=== PATIENT | female | born 1950 | race Caucasian/White ===

== ENCOUNTER → 2023-08-17 10:52 | Outpatient (REF) | payer MEDICARE, SELFPAY ==
[2023-08-17 11:28] LABS: % Basophils 0.6 % (0-2); % Immature Granulocytes 1.3 % (0-0.5); % Lymphocytes 19.2 % (20.5-51.1); % Monocytes 10.8 % (1.7-9.3); % Neutrophils 67.1 % (42.2-75.2); Absolute Basophils 0.1 10^3/uL (0-0.2); Absolute Eosinophils 0.1 10^3/uL (0-0.7); Absolute Immature Granulocytes 0.1 10^3/uL (0-0.05); Absolute Lymphocytes 2.1 10^3/uL (1.2-3.4); Absolute Monocytes 1.2 10^3/uL (0.1-0.6); Absolute Neutrophils 7.3 10^3/uL (1.4-6.5); Hematocrit 32.6 % (37.0-47.0); Hemoglobin 11.2 g/dL (12.0-16.0); Mean Corp Hgb Conc. 34.4 g/dL (33.0-37.0); Mean Corpuscular Hgb 30.7 pg (27.0-31.0); Mean Corpuscular Volume 89.3 fL (81.0-99.0); Mean Platelet Volume 10.7 fL (7.4-10.4); Nucleated Red Blood Cells % 0.2 %; Platelet Count 269 10^3/uL (130-400); Red Blood Cell Count 3.65 10^6/uL (4.20-5.40); Red Cell Dist. Width 12.9 % (11.5-14.5); White Blood Cell Count 10.8 10^3/uL (4.8-10.8)
== END ==
LOC: OLABN 10:52
PROVIDERS: ATTENDING PHYSICIAN Student in an Organized Health Care Education/Training Program
DX: J44.9 Chronic obstructive pulmonary disease, unspecified (principal)
CPT/HCPCS: 36415; 85025

== ENCOUNTER → 2023-09-19 10:31 | Outpatient (REF) | payer MEDICARE, SELFPAY ==
[2023-09-19 13:17] LABS: Blood Urea Nitrogen 24 mg/dl (7-17); Calcium 9.2 mg/dl (8.4-10.2); Carbon Dioxide 29 mmol/L (22-30); Chloride 81 mmol/L (98-107); Glucose 91 mg/dl (70-99); Potassium 3.1 mmol/L (3.5-5.1); Sodium 121 mmol/L (135-145); eGFR > 60.00
== END ==
LOC: OLABN 10:31
PROVIDERS: ATTENDING PHYSICIAN Student in an Organized Health Care Education/Training Program
DX: I71.43 Infrarenal abdominal aortic aneurysm, without rupture (principal)
CPT/HCPCS: 36415; 80048

== ENCOUNTER → 2023-09-21 10:19 | Outpatient (REF) | payer MEDICARE, SELFPAY ==
[2023-09-21 10:58] LABS: Blood Urea Nitrogen 23 mg/dl (7-17); Calcium 9.1 mg/dl (8.4-10.2); Carbon Dioxide 28 mmol/L (22-30); Chloride 90 mmol/L (98-107); Glucose 96 mg/dl (70-99); Potassium 4.3 mmol/L (3.5-5.1); Sodium 123 mmol/L (135-145); eGFR > 60.00
== END ==
LOC: OLABN 10:19
PROVIDERS: ATTENDING PHYSICIAN Student in an Organized Health Care Education/Training Program
DX: I71.43 Infrarenal abdominal aortic aneurysm, without rupture (principal)
CPT/HCPCS: 36415; 80048

== ENCOUNTER → 2023-09-23 09:26 | Outpatient (REF) | payer MEDICARE, SELFPAY ==
[2023-09-23 10:47] LABS: Blood Urea Nitrogen 21 mg/dl (7-17); Calcium 9.2 mg/dl (8.4-10.2); Carbon Dioxide 30 mmol/L (22-30); Chloride 96 mmol/L (98-107); Glucose 93 mg/dl (70-99); Potassium 4.5 mmol/L (3.5-5.1); Sodium 129 mmol/L (135-145); eGFR > 60.00
== END ==
LOC: OLABN 09:26
PROVIDERS: ATTENDING PHYSICIAN Student in an Organized Health Care Education/Training Program
DX: I71.43 Infrarenal abdominal aortic aneurysm, without rupture (principal)
CPT/HCPCS: 36415; 80048; 82565

== ENCOUNTER → 2023-09-26 09:10 | Outpatient (REF) | payer MEDICARE, SELFPAY ==
[2023-09-26 10:45] LABS: Blood Urea Nitrogen 24 mg/dl (7-17); Calcium 9.4 mg/dl (8.4-10.2); Carbon Dioxide 27 mmol/L (22-30); Chloride 96 mmol/L (98-107); Glucose 92 mg/dl (70-99); Sodium 131 mmol/L (135-145); eGFR > 60.00
== END ==
LOC: OLABN 09:10
PROVIDERS: ATTENDING PHYSICIAN Student in an Organized Health Care Education/Training Program
DX: I71.43 Infrarenal abdominal aortic aneurysm, without rupture (principal)
CPT/HCPCS: 36415; 80048

== ENCOUNTER → 2023-09-27 10:16 | Outpatient (REF) | payer MEDICARE, SELFPAY | LOC: HWRAD 10:16 | PROVIDERS: ATTENDING PHYSICIAN Surgery Vascular Surgery; FAMILY PHYSICIAN Student in an Organized Health Care Education/Training Program | DX: I71.40 Abdominal aortic aneurysm, without rupture, unspecified (principal) | CPT/HCPCS: 74174; Q9967 ==

== ENCOUNTER → 2023-11-02 08:50 | Outpatient (REF) | payer MEDICARE, SELFPAY | LOC: MRI 08:50 | PROVIDERS: ATTENDING PHYSICIAN Pain Medicine Interventional Pain Medicine | DX: M54.16 Radiculopathy, lumbar region (principal); M54.14 Radiculopathy, thoracic region | CPT/HCPCS: 72146; 72148 ==

== ENCOUNTER → 2023-12-14 13:53 | Outpatient (REF) | payer MEDICARE, SELFPAY ==
[2023-12-14 15:47] LABS: Blood Urea Nitrogen 22 mg/dl (7-17); Calcium 9.1 mg/dl (8.4-10.2); Carbon Dioxide 29 mmol/L (22-30); Chloride 99 mmol/L (98-107); Glucose 88 mg/dl (70-99); Potassium 3.8 mmol/L (3.5-5.1); Sodium 136 mmol/L (135-145); eGFR > 60.00
== END ==
LOC: OLABN 13:53
PROVIDERS: ATTENDING PHYSICIAN Student in an Organized Health Care Education/Training Program
DX: I71.40 Abdominal aortic aneurysm, without rupture, unspecified (principal)
CPT/HCPCS: 36415; 80048

== ENCOUNTER → 2023-12-30 10:56 | Outpatient (REF) | payer MEDICARE, SELFPAY | LOC: RAD 10:56 | PROVIDERS: ATTENDING PHYSICIAN Surgery Vascular Surgery; FAMILY PHYSICIAN Student in an Organized Health Care Education/Training Program | DX: I71.40 Abdominal aortic aneurysm, without rupture, unspecified (principal) | CPT/HCPCS: 74174; Q9967 ==

== ENCOUNTER 2024-01-30 14:21 | Inpatient (IN) | payer OTHER, SELFPAY ==
[2024-01-30] VITALS (8 sets, daily range): BP systolic 146–178; BP diastolic 73–100; BMI 24.6; BMI 23.5
[2024-01-30 10:39] LABS: % Basophils 0.3 % (0-2); % Eosinophils 0.2 % (0-6); % Immature Granulocytes 0.5 % (0-0.5); % Lymphocytes 8.2 % (20.5-51.1); % Monocytes 8.1 % (1.7-9.3); % Neutrophils 82.7 % (42.2-75.2); Absolute Basophils 0.1 10^3/uL (0-0.2); Absolute Immature Granulocytes 0.1 10^3/uL (0-0.05); Absolute Lymphocytes 1.7 10^3/uL (1.2-3.4); Absolute Monocytes 1.7 10^3/uL (0.1-0.6); Hematocrit 34.8 % (37.0-47.0); Hemoglobin 11.5 g/dL (12.0-16.0); Mean Corpuscular Hgb 32.9 pg (27.0-31.0); Mean Corpuscular Volume 99.4 fL (81.0-99.0); Mean Platelet Volume 10.4 fL (7.4-10.4); Nucleated Red Blood Cells % 0 %; Platelet Count 192 10^3/uL (130-400); Red Cell Dist. Width 14.3 % (11.5-14.5); White Blood Cell Count 20.6 10^3/uL (4.8-10.8)
[2024-01-30 10:58] LABS: COVID-19 Antigen Negative (Negative)
[2024-01-30 11:09] LABS: ALT (SGPT) 15 U/L (0-35); AST (SGOT) 26 U/L (14-36); Albumin 4.3 g/dl (3.5-5.0); Alkaline Phosphatase 97 U/L (38-126); Blood Urea Nitrogen 24 mg/dl (7-17); Calcium 9.6 mg/dl (8.4-10.2); Carbon Dioxide 30 mmol/L (22-30); Chloride 101 mmol/L (98-107); Estimated Creatinine Clearance 46 ml/min; Glucose 138 mg/dl (70-99); Potassium 4.1 mmol/L (3.5-5.1); Sodium 138 mmol/L (135-145); Total Bilirubin 0.6 mg/dl (0.2-1.3); Total Protein 6.8 g/dl (6.3-8.2); Troponin I 0.028 ng/ml; eGFR > 60.00
[2024-01-30] MEDS: DECADRON 10 MG IV (11:34)
[2024-01-30] MEDS: ZITHROMAX INFUSION 250 IV (11:34)
[2024-01-30] MEDS: DUONEB 3 ML INH (11:34)
--- NOTE | 2024-01-30 11:57 | ED.GENMED ---
History of Present Illness
General
Chief Complaint: Breathing Problem
Source: patient
Exam Limitations: none
Time Seen by Provider: 01/30/24 10:32
Nursing documentation reviewed up to this point in time: agreed with
History of Present Illness
History of Present Illness:
74-year-old female with past medical history of dementia, COPD hypertension hyperlipidemia presenting to the emergency department with worsening shortness of breath over the past 24 hours. Has noted some increasing wheezing and low-grade
temperature at her nursing facility. Denies any specific chest pain or additional upper respiratory symptoms.
Past History
Past History
ED Past Medical History: CAD, COPD, HTN and Hypercholesterolemia
Social History
Personal:
Review of Systems
Review of Systems
Allergies reviewed?: Yes
All Other Systems: ROS reviewed and negative except as documented in HPI and ROS
Phy Exam
Physical Exam
Physical Exam:
GENERAL: Alert , in no apparent distress
EYE: pupils equal and reactive
NECK: Supple, no significant adenopathy.
ENT: o/p clr, mmm.
CARDIAC: Regular rate and rhythm .
LUNGS: Diffuse inspiratory expiratory wheezing
ABDOMEN: Soft, without focal tenderness, no r/g, no cvat
NEUROLOGICAL: Alert and oriented, no focal neuro deficits
SKIN: Warm and dry, skin intact.
MUSCULOSKELETAL: No edema, well perfused.
PSYCH: Normal and appropriate interaction.
Scores
Heart Failure Risk
Heart Failure Risk Score: Not Applicable
Course
Orders/Labs/Results
Orders:
Orders
01/30/24 10:20
Electrocardiogram (*1) Urgent
Reason for Study: Chest Pain
EKG- Treatment ONCE
CXR Port [CR Chest Portable - 1 View] Urgent
Comment:
Reason For Exam: SOB
Reason Study Needs to be Portable: Patient Unstable
01/30/24 10:31
CMP [Comprehensive Metabolic Panel] Urgent
Complete Blood Count/With Diff Urgent
Troponin I Urgent
01/30/24 10:32
COVID-19 Antigen Urgent
Source: Nasal Swab
Influenza A+B Rapid Molecular Urgent
JESSICA Source: Nasal Swab
Specimen Description:
01/30/24 11:07
Azithromycin 500 mg/250 ml [Zithromax Infusion] 500 mg in 250 ml IV NOW
Dexamethasone Sod Phosphate [Decadron] 10 mg IV NOW STA
Ipratropium/Albuterol Sulfate [Duoneb] 3 ml INH R NOW ONE
01/30/24 11:47
Add On- LAB Urgent
Tests Added?: BNP
Abnormal Lab Results
01/30/24
10:31
WBC 20.6 H 10^3/uL
(4.8-10.8)
RBC 3.50 L 10^6/uL
(4.20-5.40)
Hgb 11.5 L g/dL
(12.0-16.0)
Hct 34.8 L %
(37.0-47.0)
MCV 99.4 H fL
(81.0-99.0)
MCH 32.9 H pg
(27.0-31.0)
Abs Immat Gran (auto) 0.1 H 10^3/uL
(0-0.05)
Absolute Neuts (auto) 17.0 H 10^3/uL
(1.4-6.5)
Absolute Monos (auto) 1.7 H 10^3/uL
(0.1-0.6)
Neutrophils % 82.7 H %
(42.2-75.2)
Lymphocytes % 8.2 L %
(20.5-51.1)
BUN 24 H mg/dl
(7-17)
Glucose 138 H mg/dl
(70-99)
07/29/24 10:31
01/30/24 10:31
Vital Signs
Initial and Last Documented VS:
Initial Vital Signs
Temp Pulse Resp Pulse Ox
100.9 F H 118 26 85
01/30/24 10:18 01/30/24 10:18 01/30/24 10:18 01/30/24 10:18
Last Documented Vital Signs
Temp Pulse Resp BP Pulse Ox
100.9 F H 113 24 173/98 94
01/30/24 10:18 01/30/24 10:22 01/30/24 10:22 01/30/24 10:21 01/30/24 10:30
MDM/Problems Addressed
MDM/Problems Addressed:
73-year-old female presenting to the emergency department today with concerns shortness of breath starting yesterday. Low-grade temperature upon arrival tachycardic. Has diffuse inspiratory expiratory wheeze send consistent with potential COPD
exacerbation. Also low-grade temperature potentially consistent with viral syndrome or potential pneumonia. Was started on azithromycin she does complain of coughing up changing phlegm. Given a steroid for likely COPD exacerbation. Initially
white count 20.6 with left shift troponin negative EKG without acute findings chest x-ray showing some potential edema. Plan to admit for further treatment and monitoring.
*Critical Care Note
Total Time (30-74mins, 75-104mins- exclusive of procedures): Not Applicable
ED Attending Note
-
Portions of this chart may have been created with voice recognition software.� Occasional wrong word or��sound alike� substitutions may have occurred due to the inherent limitations of voice recognition software.
Discharge Plan
Departure
Patient Disposition: Admit
Date of Disposition: 01/30/24
Time of Disposition: 12:00
Admit to: Telemetry
Admit to doctor: Hayley
Presentation/result/management discussed w/ accepting MD/DO: Hospitalist
Patient with high blood pressure during this ER visit?: No
Condition: Good
Covid-19: Not Applicable
Discharge Problem:
Hypoxemia, COPD exacerbation, Fever
Prescriptions:
No Action
atorvastatin 40 mg Tablet
40 mg PO HS
primidone 50 mg Tablet
50 mg PO HS
clopidogrel 75 mg Tablet
75 mg PO DAILY
amlodipine 5 mg Tablet
10 mg PO DAILY
levothyroxine 50 mcg Capsule
50 mcg PO DAILY
albuterol sulfate 2.5 mg /3 mL (0.083 %) Solution For Nebulization
2.5 mg inhalation R Q4HPRN PRN (Reason: SOB) Qty: 180 0RF
magnesium hydroxide [Milk of Magnesia] 400 mg/5 mL Suspension
30 ml PO HSPRN PRN (Reason: constipation)
bisacodyl 10 mg Suppository
10 mg TN [id number] PRN (Reason: when no BM and MOM/Lactulose ineffective)
Incruse Ellipta 62.5 mcg/actuation Blister With Device
1 inh INHALATION R DAILY
acetaminophen [Tylenol] 325 mg Tablet
650 mg PO Q4HPRN PRN (Reason: mild pain/fever)
aspirin 81 mg Tablet,Delayed Release (Dr/Ec)
81 mg PO DAILY
lidocaine 4 % Adhesive Patch,Medicated
1 patch TOPICAL DAILY
pantoprazole [Protonix] 20 mg Tablet,Delayed Release (Dr/Ec)
20 mg PO DAILY
oxycodone-acetaminophen [Percocet] 5-325 mg Tablet
1 tab PO Q6HPRN PRN (Reason: severe pain)
alprazolam [Xanax] 0.25 mg Tablet
0.25 mg PO DAILYPRN PRN (Reason: anxiety)
dexamethasone 2 mg Tablet
2 mg PO DAILY
paroxetine HCl [Paxil] 30 mg Tablet
30 mg PO QPM
fluticasone propion-salmeterol [Advair Diskus] 500-50 mcg/dose Blister With Device
1 inh INHALATION R BID
gabapentin 300 mg Capsule
300 mg PO TID
cholecalciferol (vitamin D3) 1,250 mcg (50,000 unit) Tablet
1,250 mcg PO QMONTH
Rx Instructions:
every Tuesday of the month
baclofen 5 mg Tablet
5 mg PO HS
Gemtesa 75 mg Tablet
75 mg PO QPM
Referrals:
Jose Guadalupe Garcia DO [Family Provider] -
Interventions
Interventions:
*Risk Screen - Suicide Last Done: 01/30/24 10:18
*General Assessment Last Done: 01/30/24 10:18
*Neglect/Abuse Screening Last Done: 01/30/24 10:18
ED- Fall Risk Assessment Last Done: 01/30/24 10:18
*ED COVID-19 Vaccine History Last Done: 01/30/24 10:18
ED- Cardiac Assessment Last Done: 01/30/24 10:18
ED- Pulmonary Assessment Last Done: 01/30/24 10:18
Discharge Date and Time
Print Language: URDU
[2024-01-30 12:42] LABS: NT-proBNP 785 pg/ml
[2024-01-30 15:34] LABS: Lactic Acid 0.8 mmol/L (0.7-2.0)
[2024-01-30] MEDS: TYLENOL 650 MG PO (16:13)
[2024-01-30] MEDS: DECADRON 4 MG IV ×2 (16:14→22:11)
--- NOTE | 2024-01-30 16:20 | CM ---
Patient seen at bedside in ED with physicians. Patient stated that she lives at [facility] and that she does want to go home. Patient is a LTC patient per admissions at [facility]. Patient would need an auth from [employer]. Patient currently on O2. CM will call to
SNF to confirm O2 status at facility. Patient nursing unit at [facility] is [phone]/fax [phone]. CM will continue to follow for discharge planning needs.
Plan; return to SNF; with auth needed.
--- NOTE | 2024-01-30 16:36 | PTCARENOTE ---
pt from ED via stretcher. pt is AAO*3, BP in 170's/100's. c/o headache 02/10. Tylenol given to the pt as pr request. pt is oriented to the room. call slaas within the reach. plan of care ongoing.
[2024-01-30 17:10] LABS: Urine Albumin 2+ (Neg - Trace); Urine Bilirubin Negative (Negative); Urine Character Clear (Clear); Urine Color Yellow; Urine Glucose Negative (Negative); Urine Ketone 1+ (Negative); Urine Leukocyte Negative (Negative); Urine Nitrite Negative (Negative); Urine Occult Blood 3+ (Negative); Urine Urobilinogen Negative (Neg - 1+)
[2024-01-30] MEDS: NEURONTIN 300 MG PO ×2 (17:12→22:10)
[2024-01-30 17:32] LABS: Urine Bacteria Few (Negative); Urine Red Blood Cell 21-25 /HPF (0-2); Urine White Cell 0-2 /HPF (0-5)
[2024-01-30] MEDS: PAXIL 30 MG PO (17:50)
[2024-01-30] MEDS: APRESOLINE 5 MG IV (17:55)
--- NOTE | 2024-01-30 18:16 | HPS.HSE ---
Addendum entered and electronically signed by Alena Hardy MD 01/30/24 19:23:
I personally performed a history and physical exam of the patient and discussed management with the resident. I reviewed the resident's note and agree with the documented findings and plan of care HPI/CC.
GENERAL: well developed, well nourished, female in no apparent distress
HEENT: NC/AT--O2 NC in place
HEART: regular rate and rhythm, +S1, +S2
LUNGS : tight wheezing with poor air movement throughout
ABDOM: soft, nontender, nondistended, + bowel sounds
EXT: no cyanosis, clubbing, or edema
NEUROLOGIC: grossly intact
: purewick in place
Sepsis (POA meets criteria) likely due possible bronchitis vs pna--CXR showed mild interstitial pulmonary edema. No effusion--nebs, levaquin---B/C, U/C, U/A, sputum cultures pending--Covid and Flu negative
acute COPD exacerbation with hypoxemic resp insufficiency--due to bronchitis vs pna--nebs, IV steroids, levaquin
Essential HTN--hydralazine 5mg IV q6h if SBP>160-continue amlodipine
Hypercholesterolemia-continue atorvastatin
Anxiety- continue alprazolam
Code status -Full code
DVT prophylaxis - lovenox
PT/OT
Original Note:
Family Physician
-
Family Physician: Jose Guadalupe Garcia DO
Chief Complaint
-
SOB, Cough
History of Present Illness
73 y F with a known history of COPD presented to the ED with shortness of breath and productive cough starting yesterday. Patient notes fever and chest pain. no chills, urinary symptoms, abdominal pain, headache, weakness, muscle pain. Patient was
SIRS positive in ED.
Medical History
Past Medical History
Past Medical History: Reports COPD and Other (HTN, Hypothyroidism, anxiety, osteoarthritis, depression, degenerative disk disease, CAD, neuropathy, constipation, chronic pain)
Past Surgical History: Reports Cardiac (stents)
Social History
Tobacco: Smoker (20 pack year)
Alcohol: None
Drug: None
Living: Jail
Family History
Family History: Not pertinent
Allergies / Home Medications
Allergies reflects when Allergies were last updated in [facility].
Home Medications with original date entered in [facility]
Allergy/Medication List:
Allergies
Allergy/AdvReac Type Severity Reaction Status Date / Time
cefaclor [From [facility]] Allergy Unknown Verified 02/09/23 07:35
Home Medications
amlodipine 5 mg tablet 5 mg PO DAILY Blood Pressure 01/08/23
atorvastatin 40 mg tablet 40 mg PO HS High Cholesterol 01/08/23
clopidogrel 75 mg tablet 75 mg PO DAILY Blood Clot Prevention/Tx 01/08/23
levothyroxine 50 mcg capsule 50 mcg PO DAILY Thyroid 01/08/23
metoprolol tartrate 25 mg tablet 25 mg PO BID Blood Pressure 01/08/23
mirabegron 25 mg tablet,extended release 24 hr (Myrbetriq) 25 mg PO HS Urinary Issue 01/08/23
pantoprazole 40 mg tablet,delayed release 40 mg PO DAILY Gastrointestinal Issue 01/08/23
paroxetine HCl 40 mg tablet 40 mg PO HS Depression 01/08/23
primidone 50 mg tablet 50 mg PO HS Seizures 01/08/23
albuterol sulfate 2.5 mg/3 mL (0.083 %) solution for nebulization 2.5 mg (3 mL) inhalation R Q4HPRN PRN SOB #180 mL 01/12/23
acetaminophen 325 mg tablet (Tylenol) 650 mg PO Q4H PRN mild pain/fever 02/09/23
aspirin 81 mg tablet,delayed release 81 mg PO DAILY 02/09/23
benzocaine 10 % mucosal gel 1 applic mucous membrane QID PRN gum pain 02/09/23
bisacodyl 10 mg rectal suppository 10 mg NE Q72H PRN when no BM and MOM/Lactulose ineffective 02/09/23
diclofenac sodium 1 % topical gel 2 g topical Q8H L rib pain 02/09/23
ergocalciferol (vitamin D2) 1,250 mcg (50,000 unit) capsule 1,250 mcg PO QMONTH 02/09/23
fluticasone 113 mcg-salmeterol 14 mcg/actuation breath activated powdr 1 inh inhalation R BID 02/09/23
food supplemt, lactose-reduced (Ensure oral liquid) 1 ea PO DAILY 02/09/23
gabapentin 100 mg capsule 100 mg PO Q8H 02/09/23
magnesium hydroxide 400 mg/5 mL oral suspension (Milk of Magnesia) 30 ml PO HS PRN constipation 02/09/23
oxycodone-acetaminophen 5 mg-325 mg tablet (Percocet) 1 tab PO Q6H PRN moderation pain 02/09/23
umeclidinium 62.5 mcg/actuation blister powder for inhalation (Incruse Ellipta) 1 inh inhalation R DAILY 02/09/23
Review of Systems
-
Unable to obtain full review of systems at this time due to: Dementia
History Source: Patient
Respiratory: Reports Trouble Breathing
Cardiac: Reports Palpitations
Abdomen/GI: Reports No Symptoms
: Reports No Symptoms
Musculoskeletal: Reports No Symptoms
Skin: Reports No Symptoms
Neurological: Reports No Symptoms
Endocrine: Reports No Symptoms
Hematologic/Lymphatic: Reports No Symptoms
Psych: Reports No Symptoms
Physical Exam
Vital Signs
Vital Signs
Temp Pulse Resp BP Pulse Ox
99.7 F 101 22 176/92 97
01/30/24 16:10 01/30/24 17:55 01/30/24 16:10 01/30/24 17:55 01/30/24 16:28
Physical Exam
General: Respiratory Distress
Respiratory: Wheezes
Cardiac: S1/S2 and Tachycardia
Neuro: Awake and Alert
Laboratory Results
-
01/30/24 10:31
01/30/24 10:31
Laboratory Results
Lactic Acid 0.8 mmol/L (0.7-2.0) 01/30/24 15:02
Total Bilirubin 0.6 mg/dl (0.2-1.3) 01/30/24 10:31
AST 26 U/L (14-36) 01/30/24 10:31
ALT 15 U/L (0-35) 01/30/24 10:31
Alkaline Phosphatase 97 U/L (38-126) 01/30/24 10:31
Troponin I 0.028 ng/ml 01/30/24 10:31
Impression/Plan
-
IMPRESSION:
73-year-old female with a known history of COPD presenting with SOB, cough, fever. Suspicious for acute exacerbation of COPD secondary to pneumonia. SIRS positive
PLAN:
Sepsis
-CXR - showed mild interstitial pulmonary edema. No effusion.
-Antibiotics - patient started on levaquin
-B/C, U/C, U/A, sputum culture
-increase dexamethasone dose to 4q6
COPD exacerbation
- Nebs
- continue tiotropium, incruse ellipta
HTN
-hydralazine 5mg IV q6h if SBP>160
-continue amlodipin
Hypercholestrolemia
-continue atorvastatin
Anxiety
- continue alprazolam
-Full code
-DVT prophylaxis - lovenox
[2024-01-30] MEDS: ADVAIR HFA 230/21 MCG INHALER 2 PUFF INH (19:40)
[2024-01-30] MEDS: LIPITOR 40 MG PO (22:10)
[2024-01-30] MEDS: LIORESAL 5 MG PO (22:11)
[2024-01-30] MEDS: MYSOLINE 50 MG PO (22:11)
[2024-01-31 00:39] VITALS: BP 130/83
[2024-01-31] MEDS: DECADRON 4 MG IV ×4 (05:18→21:12)
[2024-01-31] MEDS: SYNTHROID 50 MCG PO (05:19)
[2024-01-31] MEDS: PERCOCET 5/325 1 TABLET PO (05:25)
[2024-01-31 07:35] VITALS: BP 164/101
[2024-01-31 07:56] LABS: % Basophils 0.2 % (0-2); % Immature Granulocytes 0.9 % (0-0.5); % Monocytes 3.9 % (1.7-9.3); Absolute Immature Granulocytes 0.1 10^3/uL (0-0.05); Absolute Lymphocytes 0.6 10^3/uL (1.2-3.4); Absolute Monocytes 0.5 10^3/uL (0.1-0.6); Absolute Neutrophils 11.5 10^3/uL (1.4-6.5); Hematocrit 33.3 % (37.0-47.0); Hemoglobin 11.2 g/dL (12.0-16.0); Mean Corp Hgb Conc. 33.6 g/dL (33.0-37.0); Mean Corpuscular Hgb 31.9 pg (27.0-31.0); Mean Corpuscular Volume 94.9 fL (81.0-99.0); Mean Platelet Volume 10.6 fL (7.4-10.4); Nucleated Red Blood Cells % 0 %; Platelet Count 238 10^3/uL (130-400); Red Blood Cell Count 3.51 10^6/uL (4.20-5.40); Red Cell Dist. Width 14.1 % (11.5-14.5); White Blood Cell Count 12.8 10^3/uL (4.8-10.8)
[2024-01-31 08:19] LABS: Blood Urea Nitrogen 22 mg/dl (7-17); Calcium 9.6 mg/dl (8.4-10.2); Carbon Dioxide 29 mmol/L (22-30); Chloride 100 mmol/L (98-107); Estimated Creatinine Clearance 52 ml/min; Glucose 130 mg/dl (70-99); Potassium 4.1 mmol/L (3.5-5.1); Sodium 136 mmol/L (135-145); eGFR > 60.00
[2024-01-31 08:28] LABS: Procalcitonin 0.68 ng/ml (0.0-0.25)
[2024-01-31] MEDS: ADVAIR HFA 230/21 MCG INHALER 2 PUFF INH ×2 (08:28→19:25)
[2024-01-31] MEDS: SPIRIVA RESPIMAT 2.5 MCG 2 PUFF INH (08:28)
[2024-01-31 08:46] LABS: Cortisol, Random 7.4 ug/dl
[2024-01-31] MEDS: LOVENOX 40 MG SC (08:48)
[2024-01-31] MEDS: NEURONTIN 300 MG PO ×3 (08:49→21:12)
[2024-01-31] MEDS: ASPIR LOW (ENTERIC COATED) 81 MG PO (08:51)
[2024-01-31] MEDS: PROTONIX 20 MG PO (08:51)
[2024-01-31] MEDS: PLAVIX 75 MG PO (08:51)
[2024-01-31] MEDS: NORVASC 10 MG PO (08:51)
[2024-01-31] MEDS: LEVAQUIN 500 MG PO (08:52)
[2024-01-31 09:05] LABS: Vitamin B12 264 pg/ml (239-931)
[2024-01-31 09:27] LABS: TSH 0.04 uIU/ml (0.47-4.68)
--- NOTE | 2024-01-31 09:46 | PTOTSP ---
ST Acute Care Evaluation
Pt currently presents with clinical signs of moderate oropharyngeal dysphagia characterized by significantly prolonged mastication and bolus formation, piecemeal deglutition, and reduced airway protection with solids and liquids as exhibited by
consistent wet, congested coughing with both solids and liquids.
Recommendations:
- NPO x meds crushed in puree.
- No ARHP at this time.
- General aspiration precautions: HOB upright as often as possible; oral care QID; encourage pt to expectorate sputum.
- VFSS for more information.
- RUBBER MOLDER to provide additional recommendations following VFSS completion.
[2024-01-31] MEDS: VENTOLIN NEBULES 2.5 MG INH ×4 (10:25→23:16)
[2024-01-31 12:47] VITALS: BP 153/94; PULSE 104; O2SAT 89
[2024-01-31 12:50] VITALS: BP 153/94; PULSE 104; O2SAT 89
--- NOTE | 2024-01-31 13:51 | W.PN.HOSP.TC ---
Addendum entered and electronically signed by Alena Hardy MD 01/31/24 18:34:
I saw and evaluated the patient independently. I reviewed the resident�s note and agree with findings and plan as documented by Dr. Hernandez.
GENERAL: well developed, well nourished, female in no apparent distress
HEENT: NC/AT--O2 NC [address]
HEART: regular rate and rhythm, +S1, +S2
LUNGS : tight wheezing improved with better air movement throughout--rhonchi in RLL
ABDOM: soft, nontender, nondistended, + bowel sounds
EXT: no cyanosis, clubbing, or edema
NEUROLOGIC: grossly intact
Sepsis (POA meets criteria) likely due possible bronchitis vs pna--nebs, levaquin---blood cultures no growth-- sputum cultures pending--Covid and Flu negative
acute COPD exacerbation with hypoxemic resp insufficiency--due to bronchitis vs pna--nebs, IV steroids, levaquin
Essential HTN--hydralazine 5mg IV q6h if SBP>160--continue amlodipine--add lisinopril HS
Hypothyroid--cont levothyroxine--labs pending
Hypercholesterolemia-continue atorvastatin
Anxiety- continue alprazolam
Code status -Full code
DVT prophylaxis - lovenox
PT/OT
Original Note:
Today's Communication/Plan
-
OT/PT pending
Start lisinopril 5 mg daily
Continue to monitor CBC
Video fluoro swallow study completed
Continue antibiotics
Assessment / Plan
Assessment / Plan
IMPRESSION: Patient appears to be in less distress today. Notes improved breathing. O2 saturation is 90% at room air. Increased to 96% on 2 L of oxygen.
Sepsis
-Flu negative. COVID-negative
-Blood culture pending
-Pro-Morgan= 0.68 (high)
-Patient on second day of antibiotics Levaquin
-WBCs decreased from 20.6 to 12.8 today. Patient likely has a community-acquired pneumonia
COPD exacerbation with hypoxemic respiratory insufficiency
-Receives 2 L of oxygen
-Dexamethasone 4 grams every 6 hour
-Nebs
Hypertension (essential)
-Patient receives amlodipine, hydralazine every 6 hours as needed
-Patient will benefit from adding another antihypertensive medication. Will start lisinopril 5 mg today.
Hypothyroidism
-TSH pending
-Patient receives levothyroxine
Hypercholesterolemia
-Continue atorvastatin
Anxiety
-Continue gabapentin
Aspiration pneumonitis
-Patient seen by speech pathologist. Recommended n.p.o. video fluoro swallow study done - recommended minced and moist diet
Full code
VTE prophylaxis Lovenox
Anticipated Discharge: > 48 hours
Subjective/Interval History
-
Date of Service: January 31, 2024
Objective Data
-
Labs:
Laboratory Results
01/31/24
07:08
WBC 12.8 H
Hgb 11.2 L
Hct 33.3 L
Plt Count 238 D
Sodium 136
Potassium 4.1
Chloride 100
Carbon Dioxide 29
BUN 22 H
Creatinine 0.7
Glucose 130 H
Calcium 9.6
Vital Signs:
Vital Signs
Temp Pulse Resp BP Pulse Ox
99.3 F 88 18 164/101 92
01/31/24 07:35 01/31/24 08:31 01/31/24 10:29 01/31/24 07:35 01/31/24 10:29
I&O
01/30/24 01/31/24 02/01/24
06:59 06:59 06:59
Intake Total 340 / 340
Output Total 400 / 400
Balance -60 / -60
Review of Systems
-
Constitutional: Denies Fever or Chills
EENT: Denies Sore Throat
Respiratory: Reports Cough and Trouble Breathing
Cardiac: Denies Chest Pain
Abdomen/GI: Denies Abdominal Pain, Nausea or Vomiting
Genitourinary: Reports Frequency and Incontinence; Denies Dysuria
Neuro: Denies Dizzy or Headache
Physical Exam
-
General: No Apparent Distress
HEENT: Moist Mucous Membranes
Respiratory: Wheezes and Rhonchi (Rhonchi more prominent on the right side)
Cardiac: Regular Rhythm and S1/S2
GI: Soft and Nontender
Neuro: AO x 3; Negative Tremors
Psych: Calm; Negative Confused
--- NOTE | 2024-01-31 13:56 | CM ---
Addendum entered by Nidhi Katz 01/31/24 15:58:
Referral # [id number] faxed to [employer].
Original Note:
Patient seen at bedside with physicians. Patient stated she has updated her son. Patient auth request to be started today for patient to return to SNF at [facility] with therapies. CM will continue to follow for discharge planning needs.
Plan; return to SNF; needs auth
[2024-01-31 15:50] VITALS: BP 153/98
--- NOTE | 2024-01-31 16:04 | PTOTSP ---
Video Swallow Study
Summary: Patient with moderate oral and mild-moderate pharyngeal dysphagia characterized by reduced bolus control, prolonged/ineffective mastication of regular solids, reduced bolus cohesion, and minimally reduced tongue based retraction. Patient
aspirated thin liquids provided during solid trials to try and soften texture. Aspiration occurred due to poor bolus control/premature spillage into the airway. Patient had a cough response which did not clear trachea but did temporarily clear
subsequent repeated deep penetration episodes.
While patient has a response to aspiration (cough) it may be difficult to rule out cough from aspiration vs cough from COPD. Monitor clinical picture closely. If concerned for on-going aspiration despite strategies/modifications below, consider
downgrading to mildly thick liquids.
Recommendations:
1. IDDSI Level 5 (Minced and Moist), IDDSI Level 0 (Thin liquids)
2. Medications - whole and/or crushed in puree
3. Strategies/precautions: upright to 90 degrees or out of bed and in chair, full supervision, assistance as needed, small single sips/bites, slow rate with breaks for breathing, ensure mouth is clear before next sip/bite, remain upright for at
least 30 minutes after PO intake as a reflux precaution, avoid PO if very SOB
4. Avoid mixed consistencies (i.e., cereal with milk, soup with pieces, fruit cup with juice, oral medications with water).
5. Oral care 3x daily
6. Dysphagia therapy at the acute care level for patient/family education, instruction in compensations, and to determine if/when further diet modification/advancement may be appropriate.
[2024-01-31] MEDS: PAXIL 30 MG PO (16:37)
[2024-01-31] MEDS: LIORESAL 5 MG PO (21:12)
[2024-01-31] MEDS: MYSOLINE 50 MG PO (21:12)
[2024-01-31] MEDS: LIPITOR 40 MG PO (21:12)
[2024-01-31 23:10] VITALS: BP 161/102
[2024-01-31] MEDS: XANAX 0.25 MG PO (23:29)
[2024-02-01] MEDS: DECADRON 4 MG IV ×4 (04:06→21:46)
[2024-02-01] MEDS: SYNTHROID 50 MCG PO (06:06)
[2024-02-01 07:25] VITALS: BP 163/90
[2024-02-01] MEDS: SPIRIVA RESPIMAT 2.5 MCG 2 PUFF INH (07:28)
[2024-02-01] MEDS: ADVAIR HFA 230/21 MCG INHALER 2 PUFF INH ×2 (07:28→19:48)
[2024-02-01 08:24] LABS: % Basophils 0.1 % (0-2); % Immature Granulocytes 1.3 % (0-0.5); % Neutrophils 84.6 % (42.2-75.2); Absolute Immature Granulocytes 0.1 10^3/uL (0-0.05); Absolute Lymphocytes 0.8 10^3/uL (1.2-3.4); Absolute Monocytes 0.6 10^3/uL (0.1-0.6); Absolute Neutrophils 8.4 10^3/uL (1.4-6.5); Hematocrit 34.5 % (37.0-47.0); Hemoglobin 11.7 g/dL (12.0-16.0); Mean Corp Hgb Conc. 33.9 g/dL (33.0-37.0); Mean Corpuscular Hgb 32.5 pg (27.0-31.0); Mean Corpuscular Volume 95.8 fL (81.0-99.0); Mean Platelet Volume 10.3 fL (7.4-10.4); Nucleated Red Blood Cells % 0.2 %; Platelet Count 262 10^3/uL (130-400); Red Cell Dist. Width 13.9 % (11.5-14.5); White Blood Cell Count 9.9 10^3/uL (4.8-10.8)
[2024-02-01] MEDS: ZESTRIL 5 MG PO (08:32)
[2024-02-01] MEDS: LEVAQUIN 500 MG PO (08:32)
[2024-02-01] MEDS: ASPIR LOW (ENTERIC COATED) 81 MG PO (08:32)
[2024-02-01] MEDS: LOVENOX SC (08:36)
[2024-02-01] MEDS: PROTONIX 20 MG PO (08:36)
[2024-02-01] MEDS: NORVASC 10 MG PO (08:36)
[2024-02-01] MEDS: PLAVIX 75 MG PO (08:36)
[2024-02-01] MEDS: NEURONTIN 300 MG PO ×3 (08:36→21:45)
[2024-02-01 08:48] LABS: Blood Urea Nitrogen 24 mg/dl (7-17); Calcium 9.6 mg/dl (8.4-10.2); Carbon Dioxide 27 mmol/L (22-30); Chloride 101 mmol/L (98-107); Estimated Creatinine Clearance 46 ml/min; Glucose 129 mg/dl (70-99); Potassium 3.9 mmol/L (3.5-5.1); Sodium 136 mmol/L (135-145); eGFR > 60.00
--- NOTE | 2024-02-01 09:10 | CM ---
Addendum entered by Reena Vazquez 02/01/24 09:53:
[facility]
Report # [phone]

Original Note:
Clinicals faxed to [facility]; fax received
Plan: return to [facility] when stable and Auth is approved
[2024-02-01] MEDS: XANAX 0.25 MG PO (10:44)
[2024-02-01] MEDS: VENTOLIN NEBULES 2.5 MG INH ×3 (11:34→19:35)
--- NOTE | 2024-02-01 12:16 | PTOTSP ---
Dysphagia Therapy
Patient with moderate oral and mild-moderate pharyngeal dysphagia on video swallow study 02/01/2024 with aspiration of thin liquids as a liquid wash following solids.
Nursing reported patient unable to take oral medications whole in puree, had increased wheezing after taking medications whole with water, and that occasional coughing was noted with thin liquids which cannot be distinguished from COPD cough.
Increased wheezing persisted after a breathing treatment this date. Cannot rule out aspiration at the bedside. Consider temporary modification of liquids to mildly thick liquids to maximize oral control. Hold Aspiration Risk Hydration Protocol
given acute worsening of respiratory status. Will initiate when able/appropriate for comfort, oral hydration, and opportunities to practice oral control of thin liquids with a consistency that has the least amount of risk for aspiration
complications.
Recommendations:
1. IDDSI Level 5 (Minced and Moist), IDDSI Level 2 (Mildly Thick liquids)
2. Medications - crushed in puree
3. Strategies/precautions: upright to 90 degrees or out of bed and in chair, full supervision, assistance as needed, small single sips/bites, slow rate with breaks for breathing, ensure mouth is clear before next sip/bite, remain upright for at
least 30 minutes after PO intake as a reflux precaution, avoid PO if very SOB
4. Avoid mixed consistencies (i.e., cereal with milk, soup with pieces, fruit cup with juice, oral medications with water).
5. Oral care 3x daily
6. Dysphagia therapy at the acute care level for patient/family education, instruction in compensations, and to determine if/when further diet modification/advancement may be appropriate.
--- NOTE | 2024-02-01 13:06 | W.PN.HOSP.TC ---
Addendum entered and electronically signed by Alena Hardy MD 02/01/24 14:17:
I saw and evaluated the patient independently. I reviewed the resident�s note and agree with findings and plan as documented by Dr. Hernandez.
GENERAL: well developed, well nourished, female in no apparent distress
HEENT: NC/AT--O2 NC in place
HEART: regular rate and rhythm, +S1, +S2
LUNGS : back to tight wheezing and poor air movement today
ABDOM: soft, nontender, nondistended, + bowel sounds
EXT: no cyanosis, clubbing, or edema
NEUROLOGIC: grossly intact
Sepsis (POA meets criteria) likely due possible bronchitis vs pna--nebs, levaquin---blood cultures no growth-- sputum cultures pending--Covid and Flu negative--suspecting aspiration--apprec speech--had VSE--downgrading liquids....not concerned with
CXR of pulm edema, do not believe acute CHF exacerbation
acute COPD exacerbation with hypoxemic resp failure--due to bronchitis vs pna--nebs, IV steroids, levaquin--adding pulmicort nebs--not much improvement--consult pulm
Essential HTN--hydralazine 5mg IV q6h if SBP>160--continue amlodipine--add lisinopril HS
Hypothyroid--cont levothyroxine--TSH low, check free T4
Hypercholesterolemia-continue atorvastatin
Anxiety- continue alprazolam
Code status -Full code
DVT prophylaxis - lovenox
PT/OT
Original Note:
Today's Communication/Plan
-
Pulmonary consult for evaluation of increased wheezing
Repeat chest x-ray
Pulmicort nebs
Ordered free T4 for evaluation of low TSH
Continue dexamethasone 4 every 6
Breathing treatment
Evaluation by speech pathologist - downgraded liquids to mildly thick
Assessment / Plan
Assessment / Plan
IMPRESSION: Patient appears to have worse breathing and increased wheezing. Notes no chest pain, nausea, vomiting. O2 sat 97% on 2 L of oxygen.
Sepsis
-Flu negative. COVID-negative
-Blood culture -no growth in 24 hours
Pneumonia
-Sputum culture -usual respiratory lan
-Sputum Gram stain -few mixed bacterial morphotypes, many WBC, rare squamous epithelial cells
-Pro-Morgan= 0.68 (high)
-Patient on third day of antibiotics Levaquin, continue antibiotic
-WBCs decreased from 12.8 to 9.9 today. Patient likely has a community-acquired pneumonia. Possible aspiration pneumonia
-Repeat chest x-ray
-Increased wheezing, pulmonary consult appreciated
COPD exacerbation with hypoxemic respiratory insufficiency
-Receives 2 L of oxygen
-Dexamethasone 4 grams every 6 hour, will continue same dose
-Pulmicort nebs 0.5 mg bid
Hypertension (essential)
-Patient receives amlodipine, hydralazine every 6 hours as needed
-Patient will benefit from adding another antihypertensive medication. Will start lisinopril 5 mg today.
Hypothyroidism
-TSH: 0.04
-Ordered free T4 for further evaluation
-Patient receives levothyroxine
Hypercholesterolemia
-Continue atorvastatin
Anxiety
-Continue gabapentin
Aspiration pneumonitis
-Patient seen by speech pathologist. Recommended downgrading liquids to mildly thick.
Full code
VTE prophylaxis Lovenox
Anticipated Discharge: > 48 hours
Subjective/Interval History
-
Date of Service: February 01, 2024
Objective Data
-
Labs:
Laboratory Results
02/01/24
07:57
WBC 9.9
Hgb 11.7 L
Hct 34.5 L
Plt Count 262
Sodium 136
Potassium 3.9
Chloride 101
Carbon Dioxide 27
BUN 24 H
Creatinine 0.8
Glucose 129 H
Calcium 9.6
Vital Signs:
Vital Signs
Temp Pulse Resp BP Pulse Ox
97.6 F 88 15 163/90 96
02/01/24 07:25 02/01/24 11:38 02/01/24 11:38 02/01/24 08:32 02/01/24 08:40
I&O
01/31/24 02/01/24 02/02/24
06:59 06:59 06:59
Intake Total 340 / 340 600 / 600
Output Total 400 / 400
Balance -60 / -60 600 / 600
Review of Systems
-
Constitutional: Denies Fever or Chills
EENT: Denies Sore Throat
Respiratory: Reports Cough and Trouble Breathing
Cardiac: Denies Chest Pain
Abdomen/GI: Denies Abdominal Pain, Nausea or Vomiting
Genitourinary: Reports Frequency and Incontinence; Denies Dysuria
Neuro: Denies Dizzy or Headache
Physical Exam
-
General: No Apparent Distress
HEENT: Moist Mucous Membranes
Respiratory: Wheezes (Wheezing increased compared to yesterday)
Cardiac: Regular Rhythm and S1/S2
GI: Soft and Nontender
Neuro: AO x 3; Negative Tremors
Psych: Calm; Negative Confused
--- NOTE | 2024-02-01 13:16 | PN.CDI ---
CDI
- -
CDI:
Physician Documentation Request
Admit Date: 01/30/24 14:21
Dear Doctor Hayley,
Please review the following and provide your response in the progress notes.
Clinical Indicators:
Pt admitted with sepsis 2/2 Bronchitis vs PNA / Aspiration Pneumonitis/COPD exacerbation
Documented per EMS report, ' ...Female siting on the side of her bed , on 4 Liters oxygen via nasal canula ,using AMU to breathe and c/o difficulty breathing... Pt had a pule ox of 89 % while on the nasal oxygen, Pt stated she has been having
difficulty breathing since yesterday. Pt stated that she has been receiving albuterol treatments since yesterday without improvement... (+) resp distress...' Vital signs per EMS , Oxygen 6 LPM ... Pulse 119...'
Documented per ED, ' ... presenting to the emergency department with worsening shortness of breath over the past 24 hours. Has noted some increasing wheezing and low-grade temperature at her nursing facility....LUNGS: Diffuse inspiratory
expiratory wheezing...tachycardic....'
Documented in H&P, ' LUNGS : tight wheezing with poor air movement throughout.. Respiratory Distress Respiratory: Wheezes Cardiac: S1/S2 and Tachycardia...'
On arrival was 85 % oxygen , HR as high as 118, Respirations 31, on 2-4 Liters via NC
Please provide a diagnosis for the above findings/treatments :
Acute Hypoxic respiratory failure
Hypoxia- only
Other
Additional information for Respiratory Failure:
Recognized criteria for Respiratory Failure (Source: [facility] Apr/May 2013)
ABGs: (1 or more) Symptoms Please indicate type if known
1. p)2 <60 or RA SPO2 <91% on RA 1. Tachypnea, SOB, dyspnea Hypoxic
2. pCO2 50 and pH <7.35 2. Use of accessory muscles Hypercapnic
3. pO2 decrease of pCO2 increase by 3. Pallor or cyanosis Hypoxic and Hypercapnic
10 mmHg from baseline if known 4. Anxiety or restlessness Unable to determine
5. Unable to speak in full sentences
Supplemental O2 of > 40% (5LPM) Intubation is not required
Use of terms such as suspected, likely, concern for, or probable (associated with a specific diagnosis that is being evaluated, monitored, or treated as if it exists) are acceptable and can be coded in the inpatient setting, when documented at the
time of discharge.
Thank you,
Elvira Alonzo RN
CDI Specialist
[employer]
Please use your independent medical judgment in providing your response.
--- NOTE | 2024-02-01 13:31 | PN.CDI ---
CDI
- -
CDI:
Physician Documentation Request
Admit Date: 01/30/24 14:21
Dear Doctor Hayley,
Please review the following and provide your response in the progress notes.
Clinical Indicators:
Pt admitted with sepsis 2/2 Bronchitis vs PNA / Aspiration Pneumonitis/COPD exacerbation
Documented per H&P,' CXR - showed mild interstitial pulmonary edema. No effusion...'
Clarify which of the following accurately represents the acuity of the (pulmonary edema ).
Acute pulmonary edema
Acute on Chronic Pulmonary edema
Other (please specify)
Use of terms such as suspected, likely, concern for, or probable (associated with a specific diagnosis that is being evaluated, monitored, or treated as if it exists) are acceptable and can be coded in the inpatient setting, when documented at the
time of discharge.
Thank you,
Elvira Alonzo RN
CDI Specialist
[place] [facility]
Please use your independent medical judgment in providing your response.
--- NOTE | 2024-02-01 14:58 | CON.PUL ---
Consultation
Consultation Request
Date/Time Consultation Requested: 02/01/2024
Date/Time Consultation Performed: 02/01/2024
Requesting Provider: Dr. Hardy
Performing Provider: Dr. Harry Asencio
Reason for Consultation: acute exacerbation of COPD
Medical History
-
History of Present Illness:
73-year-old woman with history of COPD, hypertension, hypercholesterolemia, anxiety who was admitted to the hospital through the emergency room complaining of shortness of breath, productive cough for the last 24-48 hours. Patient had a fever.
Denies any chills, hemoptysis or purulent sputum production.
Denies urinary symptoms.
Denies swallowing problems.
During this admission on swallowing evaluation she was found to have some aspiration to liquids. Diet has been modified.
Despite nebulizers and steroids no significant improvement.
Past Medical History
Past Medical History: Other ( see assessment and plan section)
Social History
Tobacco: Smoker ( [id number] history)
Alcohol: None
Drug: None
Living: [facility]
Family History
Family History: Reviewed & Not Pertinent
Allergies / Home Medications
Allergies
Allergy/AdvReac Type Severity Reaction Status Date / Time
amoxicillin Allergy Rash Verified 01/30/24 10:30
cefaclor [From Ceclor] Allergy Unknown Verified 01/30/24 10:30
cephalexin Allergy Rash Verified 01/30/24 10:30
morphine Allergy Rash Verified 01/30/24 10:30
tramadol Allergy Rash Verified 01/30/24 10:30
Home Medications
�Medication �Instructions �Recorded �Confirmed �Last Taken �Type
amlodipine 5 mg tablet 10 mg PO DAILY Blood Pressure 01/08/23 01/30/24 02/08/23 History
atorvastatin 40 mg tablet 40 mg PO HS High Cholesterol 01/08/23 01/30/24 02/08/23 History
clopidogrel 75 mg tablet 75 mg PO DAILY Blood Clot 01/08/23 01/30/24 02/08/23 History
Prevention/Tx
levothyroxine 50 mcg capsule 50 mcg PO DAILY Thyroid 01/08/23 01/30/24 02/08/23 History
primidone 50 mg tablet 50 mg PO HS Seizures 01/08/23 01/30/24 02/08/23 History
albuterol sulfate 2.5 mg/3 mL 2.5 mg (3 mL) inhalation R Q4HPRN 01/12/23 01/30/24 Unknown Rx
(0.083 %) solution for nebulization PRN SOB #180 mL
acetaminophen 325 mg tablet 650 mg PO Q4HPRN PRN mild 02/09/23 01/30/24 02/08/23 History
(Tylenol) pain/fever
aspirin 81 mg tablet,delayed 81 mg PO DAILY Blood Clot 02/09/23 01/30/24 02/08/23 History
release Prevention/Tx
bisacodyl 10 mg rectal suppository 10 mg ME [id number] PRN when no BM 02/09/23 01/30/24 Unknown History
and MOM/Lactulose ineffective
magnesium hydroxide 400 mg/5 mL 30 ml PO HSPRN PRN constipation 02/09/23 01/30/24 Unknown History
oral suspension (Milk of Magnesia)
umeclidinium 62.5 mcg/actuation 1 inh inhalation R DAILY 02/09/23 01/30/24 02/08/23 History
blister powder for inhalation Lung/Breathing Issues
(Incruse Ellipta)
alprazolam 0.25 mg tablet (Xanax) 0.25 mg PO DAILYPRN PRN anxiety 01/30/24 01/30/24 Unknown History
baclofen 5 mg tablet 5 mg PO HS MUSCLE RELAXANT 01/30/24 01/30/24 Unknown History
cholecalciferol (vitamin D3) 1,250 1,250 mcg PO QMONTH Supplement 01/30/24 01/30/24 Unknown History
mcg (50,000 unit) tablet
dexamethasone 2 mg tablet 2 mg PO DAILY Anti-Inflammatory 01/30/24 01/30/24 Unknown History
fluticasone 500 mcg-salmeterol 50 1 inh inhalation R BID 01/30/24 01/30/24 Unknown History
mcg/dose blistr powdr for Lung/Breathing Issues
inhalation (Advair Diskus)
gabapentin 300 mg capsule 300 mg PO TID Neurological 01/30/24 01/30/24 Unknown History
Condition
lidocaine 4 % topical patch 1 patch topical DAILY lower back 01/30/24 01/30/24 Unknown History
oxycodone-acetaminophen 5 mg-325 1 tab PO Q6HPRN PRN severe pain 01/30/24 01/30/24 Unknown History
mg tablet (Percocet)
pantoprazole 20 mg tablet,delayed 20 mg PO DAILY GERD 01/30/24 01/30/24 Unknown History
release (Protonix)
paroxetine HCl 30 mg tablet (Paxil) 30 mg PO QPM MOOD 01/30/24 01/30/24 Unknown History
vibegron 75 mg tablet (Gemtesa) 75 mg PO QPM OVERACTIVE BLADDER 01/30/24 01/30/24 Unknown History
Review of Systems
-
History Source: Patient
All other systems: Negative unless noted
Vitals / Labs / Diagnostic Testing
Vital Signs
Temp Pulse Resp BP Pulse Ox
97.6 F 88 15 163/90 96
02/01/24 07:25 02/01/24 11:38 02/01/24 11:38 02/01/24 08:32 02/01/24 08:40
Lab Data
02/01/24 07:57
02/01/24 07:57
Microbiology
01/31/24 15:04 Sputum Respiratory Culture - Preliminary
Usual Respiratory Lan
01/31/24 15:04 Sputum Gram Stain - Preliminary
01/30/24 16:52 Blood/Venous Blood Culture - Preliminary
No Growth in 24 hours- Final report to follow
01/30/24 15:02 Blood/Venous Blood Culture - Preliminary
No Growth in 24 hours- Final report to follow
01/30/24 10:32 Nasal Swab Influenza Types A & B (HEATHER) - Final
Negative for Influenza A & B, NAAT
Negative results must be combined with clinical observations
and patient history.
Nucleic Acid Amplification test (NAAT)performed on the
[employer] platform.
Diagnostic Testing:
Physical Exam
-
HEENT: Normocephalic
Cardiovascular: S1/S2
Respiratory: Wheeze
GI: Soft and Non Distended
Neurology: Awake and Oriented
Skin: Warm
General: Comfortable
Assessment
-
73-year-old woman with advanced COPD, admitted with shortness of breath, cough and phlegm production. Slight hypoxemic. Found to have some aspiration. She was found to be bronchospastic as well. We were consulted on 02/01/2024 for evaluation and
management of COPD exacerbation.
Acute exacerbation of COPD-possibly tracheobronchitis.
chest x-ray 01/30/2024: Low lung volumes with mild Increased interstitial markings. No pleural effusions.
Probably be 785
Negative troponin
Influenza and Covid negative
Conditions present prior admission:
Stage IV COPD-followed by Dr. Oliver -was maintained on umeclidinium,and Advair.
Chronic hypoxemic respiratory failure requiring 2-3 L supplemental oxygen.
FEV1 27% of predicted 10/2023
AECOPD: first DH adm 01-08 to , treated with tapering CS
Kyphoscoliosis: suspected associated RLD
Hypertension.
CAD/stent x4.
Hyperlipidemia.
Chronic back pain: on opiate, gabapentin
Depression: on paroxetine
Hypothyroidism: on L-thyroxine
Aortic aneurysm followed by Dr. Pimentel-[facility].
Prior suggested h/o sz (on primidone)
Former smoker-over [id number], quit after adm January 2023
Full code
Assessment and plan:
Acute exacerbation possibly due to tracheobronchitis/low-grade fevers noted on admission.
Latest chest x-ray 02/01/2024: Do not appreciate any pneumonia.
Aspiration with liquids noted. I agree with diabetic occasional aspiration precautions.
Patient states that subjectively he has been on exam still bronchospastic, on 3-4 L nasal cannula. Close to baseline.
Does not appear toxic, not in distress at rest.
-
Continue IV corticosteroids without change as you are.
On maximal therapy with nebulizers budesonide twice a day and DuoNebs.
Secretion clearance interventions: Acapella device will be ordered.
Continue Levaquin, consider completing 5 days total. Culture with normal respiratory lan.
All other microbiology has been negative
Mucolytic's
-
There is no evidence for cardiac etiology for her acute exacerbation.
Oxygenation at close to baseline 3 L nasal cannula. Based on latest 6-minute walk testing performed by Dr. Oliver in the office.
-
Appears to be a frequent exacerbator. Might benefit from low-dose macrolide therapy in the outpatient setting to prevent exacerbations.
-
This likely will take some time to clear completely as the patient has advanced COPD with FEV1 less than 30%.
-
Physical therapy/Occupational Therapy as able.
-
[2024-02-01 15:25] VITALS: BP 141/95
[2024-02-01] MEDS: PAXIL 30 MG PO (17:21)
--- NOTE | 2024-02-01 18:00 | PTCARENOTE ---
TT to Dr. Hardy, pt's heart irregular, no noted hx of same. EKG ordered, pt placed on tele. Pt now sinus rythm with sinus arythmia. Dr. Hardy notified. call salas within reach, pt rings tayla, will cont to monitor.
--- NOTE | 2024-02-01 18:47 | W.PN.UPDATE ---
Addendum entered and electronically signed by Alena Hardy MD 02/01/24 19:06:
Was in communication with both the nurse and Dr. Keith. Personally reviewed EKG and agree with interpretation. Patient hemodynamically stable. Transfer to telemetry.
Original Note:
Update Note
Progress Note Update
Nurse noticed abnormal heart rhythm. EKG done showed sinus rhythm with marked sinus arrhythmia, left axis deviation, minimal voltage criteria for LVH, may be normal variant. Nonspecific T wave abnormality. Sinus arrhythmia due to lung issues is the
likely etiology. Vitals are stable. Patient denied any chest pain or palpitations. Switched to telemetry. Monitor vitals.
[2024-02-01 19:30] VITALS: BP 154/90
[2024-02-01] MEDS: TYLENOL 650 MG PO (19:30)
[2024-02-01] MEDS: MUCINEX 1200 MG PO (19:31)
[2024-02-01] MEDS: PULMICORT 0.5 MG INH (19:35)
[2024-02-01] MEDS: LIORESAL 5 MG PO (21:45)
[2024-02-01] MEDS: LIPITOR 40 MG PO (21:45)
[2024-02-01] MEDS: MYSOLINE 50 MG PO (21:45)
[2024-02-01 23:30] VITALS: BP 119/70
[2024-02-02] VITALS (8 sets, daily range): BP systolic 126–176; BP diastolic 54–91; PULSE 62–90; O2SAT 95
[2024-02-02] MEDS: DECADRON 4 MG IV ×3 (04:16→17:00)
[2024-02-02] MEDS: FLUSH (NSS) 1 FLUSH IV (04:17)
--- NOTE | 2024-02-02 05:08 | W.PN.HOSP.TC ---
Addendum entered and electronically signed by Alena Hardy MD 02/02/24 16:22:
I saw and evaluated the patient independently. I reviewed the resident�s note and agree with findings and plan as documented by Dr. Hernandez.
GENERAL: well developed, well nourished, female in no apparent distress
HEENT: NC/AT--O2 NC in place
HEART: regular rate and rhythm, +S1, +S2
LUNGS : wheezing improved and better air movement today
ABDOM: soft, nontender, nondistended, + bowel sounds
EXT: no cyanosis, clubbing, or edema
NEUROLOGIC: grossly intact
Sepsis (POA meets criteria) likely due possible bronchitis (more likely) vs pna (CXR neg)--nebs, levaquin---blood cultures no growth-- sputum cultures pending--Covid and Flu negative--suspecting aspiration--apprec speech--had VSE--downgrading
liquids....not concerned with CXR of pulm edema, do not believe acute CHF exacerbation
acute COPD exacerbation with hypoxemic resp failure--due to bronchitis likely--nebs, decrease IV steroids, levaquin--adding pulmicort nebs--apprec pulm
Essential HTN--hydralazine 5mg IV q6h if SBP>160--continue amlodipine--add lisinopril HS--BP improved
Hypothyroid--cont levothyroxine--TSH low, free T4 WNL--recheck as outpt
Hypercholesterolemia-continue atorvastatin
Anxiety- continue alprazolam
Code status -Full code
DVT prophylaxis - lovenox
PT/OT
Original Note:
Today's Communication/Plan
-
Continue antibiotics
Decrease dexamethasone dose to 4q8h
Continue Telemetry
Continue Nebs
Aspiration precautions
Assessment / Plan
Assessment / Plan
IMPRESSION: Patient appears to have worse breathing and increased wheezing. Notes no chest pain, abdominal pain, nausea, vomiting. O2 sat 92% on 2 L of oxygen.
Sepsis
-Flu negative. COVID-negative
-Blood culture -no growth in 48 hours
Pneumonia
-Sputum culture - usual respiratory lan
-Sputum Gram stain -few mixed bacterial morphotypes, many WBC, rare squamous epithelial cells
-Pro-Morgan= 0.68 (high)
-Patient on fourth day of antibiotics (Levaquin), continue antibiotic
-WBCs decreased from 9.9 to 9.2 today. Patient likely has tracheobronchitis. Possible aspiration pneumonia
-Repeat chest x-ray - mild pulmonary edema, not changed compared to prior
-Increased wheezing,
-Pulmonary consult - continue antibiotics,
- continue nebs,
- add guaifenesin,
- continue steroids,
- patient stage 4 COPD with FEV1 less than 30%
- might benefit from macrolide therapy in the outpatient setting to prevent exacerbations
- ordered Acapella device
Acute COPD exacerbation with hypoxemic respiratory insufficiency
-Receives 2 L of oxygen
-Dexamethasone 4 grams every 6 hour, decreased today to 4q8 (Pulmonology consult)
-Pulmicort nebs 0.5 mg bid
Hypertension (essential)
-Patient receives amlodipine, hydralazine every 6 hours as needed
-Patient started lisinopril 5 mg yesterday.
-GM=640/84
-Continue to monitor blood pressure
Hypothyroidism
-TSH: 0.04
-Free T4: Normal
-Patient receives levothyroxine
-Likely in the setting of current illness, recommended to check thyroid function as an outpatient after discharge
Hypercholesterolemia
-Continue atorvastatin
Anxiety
-Continue gabapentin
Aspiration pneumonitis, likely
-Patient seen by speech pathologist. Recommended downgrading liquids to mildly thick.
Depression
-Continue paroxetine
Sinus arrhythmia
-Change in heart rhythm noted by nurse yesterday
-EKG showed sinus rhythm with sinus arrhythmia
-Patient transferred to Telemetry
-Continue to monitor
-EKG today shows PVC + PAC + SVT, likely in the setting of current COPD exacerbation
-Order Potasssium Chloride, Potassium level today is 3.5
Full code
VTE prophylaxis Lovenox
Anticipated Discharge: > 48 hours
Subjective/Interval History
-
Date of Service: February 02, 2024
Objective Data
-
Labs:
Laboratory Results
02/02/24
04:35
WBC Pending
Hgb Pending
Hct Pending
Plt Count Pending
Sodium Pending
Potassium Pending
Chloride Pending
Carbon Dioxide Pending
BUN Pending
Creatinine Pending
Glucose Pending
Calcium Pending
Total Bilirubin Pending
AST Pending
ALT Pending
Alkaline Phosphatase Pending
Vital Signs:
Vital Signs
Temp Pulse Resp BP Pulse Ox
98.1 F 88 18 126/84 92
02/02/24 04:58 02/01/24 23:30 02/02/24 04:58 02/02/24 04:58 02/02/24 04:58
I&O
01/31/24 02/01/24 02/02/24
06:59 06:59 06:59
Intake Total 340 / 340 600 / 600 480 / 480
Output Total 400 / 400
Balance -60 / -60 600 / 600 480 / 480
Review of Systems
-
Constitutional: Denies Fever or Chills
EENT: Denies Sore Throat
Respiratory: Reports Cough and Trouble Breathing
Cardiac: Denies Chest Pain
Abdomen/GI: Denies Abdominal Pain, Nausea or Vomiting
Genitourinary: Reports Frequency and Incontinence; Denies Dysuria
Neuro: Denies Dizzy or Headache
Physical Exam
-
General: No Apparent Distress
HEENT: Moist Mucous Membranes
Respiratory: Wheezes (Wheezing increased compared to yesterday)
Cardiac: Regular Rhythm and S1/S2
GI: Soft and Nontender
Neuro: AO x 3; Negative Tremors
Psych: Calm; Negative Confused
[2024-02-02 05:24] LABS: % Basophils 0.2 % (0-2); % Immature Granulocytes 1.4 % (0-0.5); % Lymphocytes 7.8 % (20.5-51.1); % Monocytes 6.9 % (1.7-9.3); % Neutrophils 83.7 % (42.2-75.2); Absolute Immature Granulocytes 0.1 10^3/uL (0-0.05); Absolute Lymphocytes 0.7 10^3/uL (1.2-3.4); Absolute Monocytes 0.6 10^3/uL (0.1-0.6); Absolute Neutrophils 7.7 10^3/uL (1.4-6.5); Hematocrit 32.6 % (37.0-47.0); Hemoglobin 10.8 g/dL (12.0-16.0); Mean Corp Hgb Conc. 33.1 g/dL (33.0-37.0); Mean Corpuscular Hgb 31.1 pg (27.0-31.0); Mean Corpuscular Volume 93.9 fL (81.0-99.0); Mean Platelet Volume 10.3 fL (7.4-10.4); Nucleated Red Blood Cells % 0 %; Platelet Count 263 10^3/uL (130-400); Red Blood Cell Count 3.47 10^6/uL (4.20-5.40); Red Cell Dist. Width 14.1 % (11.5-14.5); White Blood Cell Count 9.2 10^3/uL (4.8-10.8)
[2024-02-02 05:44] LABS: ALT (SGPT) 15 U/L (0-35); AST (SGOT) 26 U/L (14-36); Albumin 3.6 g/dl (3.5-5.0); Alkaline Phosphatase 86 U/L (38-126); Blood Urea Nitrogen 30 mg/dl (7-17); Calcium 9.3 mg/dl (8.4-10.2); Carbon Dioxide 27 mmol/L (22-30); Chloride 97 mmol/L (98-107); Estimated Creatinine Clearance 33 ml/min; Glucose 126 mg/dl (70-99); Magnesium 2.1 mg/dl (1.6-2.3); Potassium 3.5 mmol/L (3.5-5.1); Sodium 133 mmol/L (135-145); Total Bilirubin 0.4 mg/dl (0.2-1.3); Total Protein 6.1 g/dl (6.3-8.2); eGFR 53.39
[2024-02-02 06:00] LABS: Free T4 1.55 ng/dl (0.78-2.19)
[2024-02-02] MEDS: SYNTHROID 50 MCG PO (06:12)
[2024-02-02] MEDS: PULMICORT 0.5 MG INH ×2 (08:11→19:27)
[2024-02-02] MEDS: SPIRIVA RESPIMAT 2.5 MCG 2 PUFF INH (08:11)
[2024-02-02] MEDS: VENTOLIN NEBULES 2.5 MG INH ×2 (08:11→19:27)
[2024-02-02] MEDS: ADVAIR HFA 230/21 MCG INHALER 2 PUFF INH ×2 (08:11→19:27)
[2024-02-02] MEDS: NORVASC 10 MG PO (08:49)
[2024-02-02] MEDS: LEVAQUIN 500 MG PO (08:49)
[2024-02-02] MEDS: ZESTRIL 5 MG PO (08:50)
[2024-02-02] MEDS: PLAVIX 75 MG PO (08:50)
[2024-02-02] MEDS: NEURONTIN 300 MG PO ×3 (08:50→21:30)
[2024-02-02] MEDS: PROTONIX 20 MG PO (08:50)
[2024-02-02] MEDS: ASPIR LOW (ENTERIC COATED) 81 MG PO (08:50)
[2024-02-02] MEDS: MUCINEX 1200 MG PO ×2 (08:50→20:15)
[2024-02-02] MEDS: LOVENOX SC (08:54)
[2024-02-02] MEDS: XANAX 0.25 MG PO (09:11)
[2024-02-02] MEDS: TYLENOL 650 MG PO (11:34)
--- NOTE | 2024-02-02 11:55 | W.PN.PUL3 ---
Today's Communication / Plan
-
Decrease dexamethasone to every 8 hours
Continue nebulizer therapy Pulmicort/DuoNeb
Acapella
mucolytic agent antibiotic
Oxygen supplementation
Aspiration precautions
Physical therapy as able
Assessment
-
73-year-old woman with advanced COPD, admitted with shortness of breath, cough and phlegm production. Slight hypoxemic. Found to have some aspiration. She was found to be bronchospastic as well. We were consulted on 02/01/2024 for evaluation and
management of COPD exacerbation.
Acute exacerbation of COPD-possibly tracheobronchitis.
chest x-ray 01/30/2024: Low lung volumes with mild Increased interstitial markings. No pleural effusions.
Probably be 785
Negative troponin
Influenza and Covid negative
Conditions present prior admission:
Stage IV COPD-followed by Dr. Oliver -was maintained on umeclidinium,and Advair.
Chronic hypoxemic respiratory failure requiring 2-3 L supplemental oxygen.
FEV1 27% of predicted 10/2023
AECOPD: first DH adm 01-08 to , treated with tapering CS
Kyphoscoliosis: suspected associated RLD
Hypertension.
CAD/stent x4.
Hyperlipidemia.
Chronic back pain: on opiate, gabapentin
Depression: on paroxetine
Hypothyroidism: on L-thyroxine
Aortic aneurysm followed by Dr. Pimentel-[facility].
Prior suggested h/o sz (on primidone)
Former smoker-over [id number], quit after adm January 2023
Full code
Assessment and plan:
Acute exacerbation possibly due to tracheobronchitis/low-grade fevers noted on admission.
-
Latest chest x-ray 02/01/2024: Do not appreciate any pneumonia.
continue with aspiration precautions.
On exam light basilar crackles. Expiratory wheezing. Better air movement compared to yesterday.
Patient subjectively feels better compared to yesterday.
Oxygen supplementation close to baseline 3-4 L.
Does not appear toxic, not in distress at rest.
-
Continue IV corticosteroids-Dexamethasone decreased to 4 mg IV every 8 hours 02/02/2024. Slow taper.
On maximal therapy with nebulizers budesonide twice a day and DuoNebs.
Secretion clearance interventions: . Continue Acapella.
Continue Levaquin, consider completing 5 days total. Culture with normal respiratory lan.
All other microbiology has been negative
Mucolytic's continues
-
There is no evidence for cardiac etiology for her acute exacerbation.
Oxygenation at close to baseline 3 L nasal cannula. Based on latest 6-minute walk testing performed by Dr. Oliver in the office.
-
Appears to be a frequent exacerbator. Might benefit from low-dose macrolide therapy in the outpatient setting to prevent exacerbations.
-
This likely will take some time to clear completely as the patient has advanced COPD with FEV1 less than 30%.
-
Physical therapy/Occupational Therapy as able.
-
Evnetual follow up with Dr. Oliver after discharge.
Subjective Data
-
Date of Service:
Date of Service: February 02, 2024
Chief Complaint: Pulmonary Follow Up (Acute exacerbation of COPD.)
Subjective:
Continues to report cough and phlegm production.
Denies hemoptysis
Continues to report some wheezing.
Review of Systems
General: Fever (n)
Cardiopulmonary: Dyspnea, Cough and Sputum Production
Objective Data
Data Reviewed
Vital Signs / I&O / Oxygen:
Vital Signs
Temp Pulse Resp BP Pulse Ox
98.7 F 78 12 150/91 97
02/02/24 11:15 02/02/24 11:15 02/02/24 11:15 02/02/24 11:15 02/02/24 11:15
Intake and Output
02/01/24 02/02/24 02/03/24
06:59 06:59 06:59
Intake Total 600 / 600 800 / 800
Balance 600 / 600 800 / 800
SaO2 97
Nasal Cannula flow liters per 3
minute
Physical Exam
General: Respiratory Distress (n) and Comfortable
HEENT: Normocephalic
Cardiovascular: S1-S2 and Regular Rhythm
Respiratory: Wheeze
GI: Soft and Non Distended
Neurology: Awake, Alert, AO x 3 and No Motor Deficits
Skin: Warm
Labs/Micro/Reports
Lab Data
02/02/24 04:35
02/02/24 04:35
Microbiology
01/31/24 15:04 Sputum Respiratory Culture - Final
Usual Respiratory Lan
01/31/24 15:04 Sputum Gram Stain - Final
01/30/24 16:52 Blood/Venous Blood Culture - Preliminary
No Growth in 48 hours- Final report to follow
01/30/24 15:02 Blood/Venous Blood Culture - Preliminary
No Growth in 48 hours- Final report to follow
01/30/24 10:32 Nasal Swab Influenza Types A & B (HEATHER) - Final
Negative for Influenza A & B, NAAT
Negative results must be combined with clinical observations
and patient history.
Nucleic Acid Amplification test (NAAT)performed on the
[employer] platform.
--- NOTE | 2024-02-02 14:58 | CM ---
Patient is no longer on [employer], as of 02/02/24 patient no longer has aetna. CM spoke with Day at [facility] and she confirmed information. CM spoke with Taylor at SNF/admissions who indicated that she would be able to accept patient back without auth when
patient was medically appropriate. CM will continue to follow for discharge planning needs.
Plan; return to SNF when medically appropriate
[2024-02-02] MEDS: KCL 40 MEQ PO (16:56)
[2024-02-02] MEDS: PAXIL 30 MG PO (17:00)
[2024-02-02] MEDS: MYSOLINE 50 MG PO (21:30)
[2024-02-02] MEDS: LIORESAL 5 MG PO (21:30)
[2024-02-02] MEDS: LIPITOR 40 MG PO (21:30)
[2024-02-03] MEDS: FLUSH (NSS) 1 FLUSH IV (02:42)
[2024-02-03] MEDS: DECADRON 4 MG IV ×2 (02:42→09:00)
[2024-02-03 03:30] VITALS: BP 137/71
[2024-02-03] MEDS: SYNTHROID 50 MCG PO (05:08)
[2024-02-03 07:00] VITALS: BP 147/96
[2024-02-03 07:48] LABS: % Basophils 0.2 % (0-2); % Immature Granulocytes 1.6 % (0-0.5); % Lymphocytes 5.3 % (20.5-51.1); % Neutrophils 85.9 % (42.2-75.2); Absolute Immature Granulocytes 0.2 10^3/uL (0-0.05); Absolute Lymphocytes 0.6 10^3/uL (1.2-3.4); Absolute Monocytes 0.9 10^3/uL (0.1-0.6); Absolute Neutrophils 10.4 10^3/uL (1.4-6.5); Hematocrit 34.8 % (37.0-47.0); Hemoglobin 11.5 g/dL (12.0-16.0); Mean Corpuscular Hgb 31.6 pg (27.0-31.0); Mean Corpuscular Volume 95.6 fL (81.0-99.0); Mean Platelet Volume 10.3 fL (7.4-10.4); Nucleated Red Blood Cells % 0 %; Platelet Count 229 10^3/uL (130-400); Red Blood Cell Count 3.64 10^6/uL (4.20-5.40); Red Cell Dist. Width 13.8 % (11.5-14.5); White Blood Cell Count 12.1 10^3/uL (4.8-10.8)
[2024-02-03] MEDS: PULMICORT 0.5 MG INH (07:50)
[2024-02-03] MEDS: ADVAIR HFA 230/21 MCG INHALER 2 PUFF INH (07:51)
[2024-02-03] MEDS: SPIRIVA RESPIMAT 2.5 MCG 2 PUFF INH (07:51)
[2024-02-03 08:29] LABS: Blood Urea Nitrogen 31 mg/dl (7-17); Calcium 9.2 mg/dl (8.4-10.2); Carbon Dioxide 25 mmol/L (22-30); Chloride 103 mmol/L (98-107); Estimated Creatinine Clearance 41 ml/min; Glucose 115 mg/dl (70-99); Potassium 4.2 mmol/L (3.5-5.1); Sodium 136 mmol/L (135-145); eGFR > 60.00
[2024-02-03] MEDS: NORVASC 10 MG PO (08:46)
[2024-02-03] MEDS: NEURONTIN 300 MG PO ×2 (08:46→16:58)
[2024-02-03] MEDS: ZESTRIL 5 MG PO (08:47)
[2024-02-03] MEDS: ASPIR LOW (ENTERIC COATED) 81 MG PO (08:47)
[2024-02-03] MEDS: MUCINEX 1200 MG PO (08:47)
[2024-02-03] MEDS: PLAVIX 75 MG PO (08:47)
[2024-02-03] MEDS: PROTONIX 20 MG PO (08:47)
[2024-02-03] MEDS: LEVAQUIN 250 MG PO (08:47)
[2024-02-03] MEDS: XANAX 0.25 MG PO (08:47)
[2024-02-03] MEDS: LOVENOX SC (08:48)
--- NOTE | 2024-02-03 11:10 | W.PN.PUL3 ---
Today's Communication / Plan
-
Currently on RA, no complaints, wants to go home
Home O2 eval
I will transition IV steroids to PO taper
Consider stopping abx
OP pulmonary FU recommended
Discharge planning per team
Assessment
-
73-year-old woman with advanced COPD, admitted with shortness of breath, cough and phlegm production. Slight hypoxemic. Found to have some aspiration. She was found to be bronchospastic as well. We were consulted on 02/01/2024 for evaluation and
management of COPD exacerbation.
Acute exacerbation of COPD-possibly tracheobronchitis.
chest x-ray 01/30/2024: Low lung volumes with mild Increased interstitial markings. No pleural effusions.
Probably be 785
Negative troponin
Influenza and Covid negative
Conditions present prior admission:
Stage IV COPD-followed by Dr. Oliver -was maintained on umeclidinium,and Advair.
Chronic hypoxemic respiratory failure requiring 2-3 L supplemental oxygen.
FEV1 27% of predicted 10/2023
AECOPD: first DH adm 01-08 to , treated with tapering CS
Kyphoscoliosis: suspected associated RLD
Hypertension.
CAD/stent x4.
Hyperlipidemia.
Chronic back pain: on opiate, gabapentin
Depression: on paroxetine
Hypothyroidism: on L-thyroxine
Aortic aneurysm followed by Dr. Pimentel-[facility].
Prior suggested h/o sz (on primidone)
Former smoker-over [id number], quit after adm January 2023
Full code
Plan
Stable on RA, no new SOB
Does not appear toxic, not in distress at rest.
Acute exacerbation possibly due to tracheobronchitis/low-grade fevers noted on admission.
Latest chest x-ray 02/01/2024: Do not appreciate any pneumonia.
Continue with aspiration precautions.
Patient subjectively feels better compared to yesterday.
On IV corticosteroids-Dexamethasone, transition to PO prednisone today
On maximal therapy with nebulizers budesonide twice a day and DuoNebs.
Secretion clearance interventions: Continue Acapella.
Continue Levaquin, consider stopping and observing off
Culture with normal respiratory lan.
All other microbiology has been negative
Mucolytic's continues
There is no evidence for cardiac etiology for her acute exacerbation.
History of baseline use of o2 at 3 L nasal cannula. Based on latest 6-minute walk testing performed by Dr. Oliver in the office.
She is currently on RA
-
Appears to be a frequent exacerbator.
Might benefit from low-dose macrolide therapy in the outpatient setting to prevent exacerbations.
Physical therapy/Occupational Therapy as able.
-
Eventual follow up with Dr. Oliver after discharge.
Discharge planning per team
Subjective Data
-
Date of Service:
Date of Service: February 03, 2024
Chief Complaint: Pulmonary Follow Up (Acute exacerbation of COPD.)
Subjective:
Doing well, stable on RA
Wants to go home
Objective Data
Data Reviewed
Vital Signs / I&O / Oxygen:
Vital Signs
Temp Pulse Resp BP Pulse Ox
98.0 F 92 18 147/96 94
02/03/24 07:00 02/03/24 08:46 02/03/24 07:54 02/03/24 08:46 02/03/24 08:28
Intake and Output
02/02/24 02/03/24 02/04/24
06:59 06:59 06:59
Intake Total 800 / 800 900 / 900
Balance 800 / 800 900 / 900
SaO2 94
Nasal Cannula flow liters per 2
minute
Physical Exam
General: Respiratory Distress (n) and Comfortable
HEENT: Normocephalic
Cardiovascular: S1-S2 and Regular Rhythm
Respiratory: Clear
GI: Soft and Non Distended
Neurology: Awake, Alert, Oriented, AO x 3 and No Motor Deficits
Skin: Warm
Labs/Micro/Reports
Lab Data
02/03/24 06:59
02/03/24 06:59
Microbiology
01/30/24 16:52 Blood/Venous Blood Culture - Preliminary
No Growth in 72 hours- Final report to follow
01/30/24 15:02 Blood/Venous Blood Culture - Preliminary
No Growth in 72 hours- Final report to follow
01/31/24 15:04 Sputum Respiratory Culture - Final
Usual Respiratory Lan
01/31/24 15:04 Sputum Gram Stain - Final
[2024-02-03 11:13] VITALS: BP 132/83
--- NOTE | 2024-02-03 14:04 | PN.CDI ---
CDI
- -
CDI:
Physician Documentation Request
Admit Date: 01/30/24 14:21
Dear Doctor Hayley,
Please review the following and provide your response in the progress notes.
Clinical Indicators:
Pt admitted with sepsis 2/2 Bronchitis vs PNA / Aspiration Pneumonitis/COPD exacerbation
Previous query response documented in progress notes 01/31 &02/01, ' acute COPD exacerbation with hypoxemic resp failure...'
Pulmonology consult, ' Chronic hypoxemic respiratory failure requiring 2-3 L supplemental oxygen...Oxygenation at close to baseline 3 L nasal cannula. Based on latest 6-minute walk testing performed by Dr. Oliver in the office.'
Clarify which of the following accurately represents the acuity of the (Hypoxic Respiratory Failure ).
Acute on Chronic
Acute
Other ( please specify)
Use of terms such as suspected, likely, concern for, or probable (associated with a specific diagnosis that is being evaluated, monitored, or treated as if it exists) are acceptable and can be coded in the inpatient setting, when documented at the
time of discharge.
Thank you,
Elvira Alonzo RN
CDI Specialist
[place] [facility]
Please use your independent medical judgment in providing your response.
--- NOTE | 2024-02-03 14:10 | PN.CDI ---
CDI
- -
CDI:
Physician Documentation Request
Admit Date: 01/30/24 14:21
Dear Doctor ,
Please review the following and provide your response in the progress notes.
Clinical Indicators:
Pt admitted with sepsis 2/2 Bronchitis vs PNA / Aspiration Pneumonitis/COPD exacerbation
Consult and progress note 02/01, 'Acute exacerbation of COPD-possibly tracheobronchitis...On exam light basilar crackles. Expiratory wheezing...-Continue IV corticosteroids-Dexamethasone decreased to 4 mg IV every 8 hours... Slow taper.On maximal
therapy with nebulizers budesonide twice a day and DuoNebs. Secretion clearance interventions: Continue Acapella.'
Clarify which of the following accurately represents the acuity of the ( Tracheobronchitis ).
Acute
Acute on Chronic
Chronic
Other
Use of terms such as suspected, likely, concern for, or probable (associated with a specific diagnosis that is being evaluated, monitored, or treated as if it exists) are acceptable and can be coded in the inpatient setting, when documented at the
time of discharge.
Thank you,
Elvira Alonzo RN
CDI Specialist
[place] [facility]
Please use your independent medical judgment in providing your response.
--- NOTE | 2024-02-03 14:19 | W.DCSUMMARY ---
Addendum entered and electronically signed by Alena Hardy MD 02/03/24 21:03:
Read, reviewed, and agree. See same day progress note for additional details. Time spent coordinating care, DC planning, review of DC plan of care with resident, transition of care, review of records in EMR, med rec, consults, notes, d/w
consultants, nursing, family, and CM = 18 mins
Original Note:
Discharge Summary
Discharge Data
Date of Admission: 01/30/24
Date of Discharge: 02/03/24
-
Pending Results: No
Hospital Course
Primary diagnosis:
Acute COPD exacerbation with hypoxemic respiratory failure
Sepsis likely due to tracheobronchitis vs less likely pneumonia (chest x-ray negative)
Secondary diagnosis:
Essential hypertension
Hypothyroidism
Hyperlipidemia
Anxiety
73-year-old female with history of COPD presented to the ED with worsening shortness of breath fever and cough. Patient was SIRS positive in the ED. chest x-ray showed mild pulmonary edema no consolidation. Patient was started on Levaquin,
dexamethasone, 3 L of oxygen, nebulizers. Blood cultures negative. Sputum culture negative. COVID-negative. Flu negative. Pro-Morgan was high. Patient had abnormal EKGs during stay in the hospital - no A-fib. Wheezing decreased with treatment.
Patient was weaned off oxygen. Today, oxygen saturation at room air was 94%. Patient to continue oral prednisone (to be tapered) and Levaquin (for 1 day after discharge to complete course of therapy). Patient had low TSH (0.04) and normal free T4,
recommended outpatient follow-up for hypothyroidism management. Recommend minced and moist diet with aspiration precautions.
Patient feels well and is stable. Outpatient pulmonary follow-up recommended. Patient is discharged on prednisone taper, Levaquin (1 tablet), home meds prior to admission.
Discharge Plan
-
Patient Disposition: Jail/SNF
Discharge Diagnosis/Procedures: Acute exacerbation of COPD (possibly tracheobronchitits vs community-acquired pneumonia); hypoxic respiratory failure; COPD; essential hypertension; Hyperlipidemia; Hypothyroidism; CAD/stent; Aortic aneurysm;
Depression; former smoker; kyphoscoliosis; chronic back pain; anxiety
Condition: Good
Diet: 2 Gram Sodium and Other diet
Additional Diets: Minced and moist
Activity: As tolerated
Driving Restrictions: As prior to admission
Bathing Restrictions: OK to Shower
Referrals:
Jose Guadalupe Garcia DO [Family Provider] -
Jennifer Olivia DO [Active] - in four to six weeks (PFTs)
Prescriptions:
New
fluticasone propion-salmeterol 230-21 mcg/actuation Hfa Aerosol Inhaler
2 puff inhalation R BID Qty: 12 0RF
levofloxacin 250 mg Tablet
250 mg PO DAILY Qty: 1 0RF
Rx Instructions:
Last dose tomorrow 02/03
lisinopril 5 mg Tablet
5 mg PO DAILY Qty: 30 3RF
prednisone 10 mg Tablet
See Rx Instructions .ROUTE .COMPLEX Qty: 30 0RF
Rx Instructions:
Take By Mouth:
40 mg daily x3 days, 30 mg daily x3 days,
20 mg daily x3 days, 10 mg daily x3 days.
Continued
atorvastatin 40 mg Tablet
40 mg PO HS
primidone 50 mg Tablet
50 mg PO HS
clopidogrel 75 mg Tablet
75 mg PO DAILY
amlodipine 5 mg Tablet
10 mg PO DAILY
levothyroxine 50 mcg Capsule
50 mcg PO DAILY
albuterol sulfate 2.5 mg /3 mL (0.083 %) Solution For Nebulization
2.5 mg inhalation R Q4HPRN PRN (Reason: SOB) Qty: 180 0RF
magnesium hydroxide [Milk of Magnesia] 400 mg/5 mL Suspension
30 ml PO HSPRN PRN (Reason: constipation)
bisacodyl 10 mg Suppository
10 mg OH [id number] PRN (Reason: when no BM and MOM/Lactulose ineffective)
Incruse Ellipta 62.5 mcg/actuation Blister With Device
1 inh INHALATION R DAILY
acetaminophen [Tylenol] 325 mg Tablet
650 mg PO Q4HPRN PRN (Reason: mild pain/fever)
aspirin 81 mg Tablet,Delayed Release (Dr/Ec)
81 mg PO DAILY
lidocaine 4 % Adhesive Patch,Medicated
1 patch TOPICAL DAILY
pantoprazole [Protonix] 20 mg Tablet,Delayed Release (Dr/Ec)
20 mg PO DAILY
oxycodone-acetaminophen [Percocet] 5-325 mg Tablet
1 tab PO Q6HPRN PRN (Reason: severe pain)
alprazolam [Xanax] 0.25 mg Tablet
0.25 mg PO DAILYPRN PRN (Reason: anxiety)
paroxetine HCl [Paxil] 30 mg Tablet
30 mg PO QPM
gabapentin 300 mg Capsule
300 mg PO TID
cholecalciferol (vitamin D3) 1,250 mcg (50,000 unit) Tablet
1,250 mcg PO QMONTH
Rx Instructions:
every Tuesday of the month
baclofen 5 mg Tablet
5 mg PO HS
Gemtesa 75 mg Tablet
75 mg PO QPM
Discontinued
dexamethasone 2 mg Tablet
2 mg PO DAILY
fluticasone propion-salmeterol [Advair Diskus] 500-50 mcg/dose Blister With Device
1 inh INHALATION R BID
Discharge Orders:
Discharge Patient (As Directed); Ordered 02/03/24
Ordered By: Amy Hernandez
Discharge Date and Time
Discharge Date/Time: 02/03/24 18:16
Print Language: GERMAN
--- NOTE | 2024-02-03 14:20 | CM ---
Patient seen at bedside with physicians. Patient reviewed and signed IMM, signed form placed on chart. Patient son updated about patient return and he indicated that he was in agreement with plan. CM spoke with admissions at [facility] and they are aware
of time for transport of 17;00. Please call report to [phone]/fax [phone]. Patient for transport via ambulance. CM will continue to follow for discharge planning needs.
Plan; return to SNF
[2024-02-03 15:52] VITALS: BP 136/88
--- NOTE | 2024-02-03 16:13 | RESPNOTE ---
Respiratory: patient declined O2 titration walk x2. Patient states she already has oxygen at home.
[2024-02-03] MEDS: PAXIL 30 MG PO (17:00)
--- NOTE | 2024-02-03 20:29 | W.PN.HOSP.TC ---
Addendum entered and electronically signed by Amy Hernandez MD, Resident 02/07/24 14:44:
Acute hypoxemic respiratory failure -due to bronchitis likely
Addendum entered and electronically signed by Alena Hardy MD 02/04/24 06:55:
error: should read acute bronchitis
Addendum entered and electronically signed by Alena Hardy MD 02/03/24 20:46:
I saw and evaluated the patient independently. I reviewed the resident�s note and agree with findings and plan as documented by Dr. Hernandez.
GENERAL: well developed, well nourished, female in no apparent distress
HEENT: NC/AT--off O2 NC
HEART: regular rate and rhythm, +S1, +S2
LUNGS : wheezing improved and better air movement today
ABDOM: soft, nontender, nondistended, + bowel sounds
EXT: no cyanosis, clubbing, or edema
NEUROLOGIC: grossly intact
Sepsis (POA meets criteria) likely due possible bronchitis (more likely) vs pna (CXR neg)--nebs,finish levaquin---blood cultures no growth-- sputum cultures normal lan--Covid and Flu negative--suspecting aspiration--apprec speech--had
VSE--downgrading liquids....not concerned with CXR of pulm edema, do not believe acute CHF exacerbation
acute COPD exacerbation with hypoxemic resp failure--due to bronchitis likely--nebs, decrease IV steroids, levaquin--adding pulmicort nebs--apprec pulm
Essential HTN--hydralazine 5mg IV q6h if SBP>160--continue amlodipine--add lisinopril HS--BP improved
Hypothyroid--cont levothyroxine--TSH low, free T4 WNL--recheck as outpt
Hypercholesterolemia-continue atorvastatin
Anxiety- continue alprazolam
Code status -Full code
DVT prophylaxis - lovenox
PT/OT
Original Note:
Today's Communication/Plan
-
Oral prednisone to be tapered
Continue Levaquin for 1 day after discharge
Continue home meds
Patient follow-up for hypothyroidism
Assessment / Plan
Assessment / Plan
IMPRESSION: Patient appears to have improved breathing and decreased wheezing. Notes no chest pain, abdominal pain, nausea, vomiting.Patient is no longer on oxygen. Oxygen saturation on room air is 94%. Patient to be discharged today
Sepsis
-Flu negative. COVID-negative
-Blood culture - no growth in 96 hours
Likely tracheobronchitis vs pneumonia (negative chest x-ray)
-Sputum culture - usual respiratory lan
-Sputum Gram stain - few mixed bacterial morphotypes, many WBC, rare squamous epithelial cells
-Pro-Morgan= 0.68 (high)
-continue Levaquin
-WBCs increased from 9.2 to 12.1 today. Likely reactive due to steroid use
-Repeat chest x-ray - mild pulmonary edema, not changed compared to prior
-Decreased wheezing
-Pulmonary consult - continue antibiotics,
- continue nebs,
- add guaifenesin,
- continue steroids,
- patient stage 4 COPD with FEV1 less than 30%
- might benefit from macrolide therapy in the outpatient setting to prevent exacerbations
- ordered Acapella device
Acute COPD exacerbation with hypoxemic respiratory insufficiency
-No longer on oxygen
-Switch to oral prednisone
-Continue inhalers
Hypertension (essential)
-Patient receives amlodipine, hydralazine every 6 hours as needed
-Continue lisinopril
-IQ=367/71
-Continue to monitor blood pressure
Hypothyroidism
-TSH: 0.04
-Free T4: Normal
-Patient receives levothyroxine
-Likely in the setting of current illness, recommended to check thyroid function as an outpatient after discharge
Hypercholesterolemia
-Continue atorvastatin
Anxiety
-Continue gabapentin
Aspiration pneumonitis, likely
-Patient seen by speech pathologist. Recommended downgrading liquids to mildly thick.
Depression
-Continue paroxetine
Sinus arrhythmia
-Change in heart rhythm noted by nurse yesterday
-EKG showed sinus rhythm with sinus arrhythmia
-Patient transferred to Telemetry
-Continue to monitor
-EKG today shows PVC + PAC + SVT, likely in the setting of current COPD exacerbation
-Ordered Potasssium Chloride, Potassium level today is 4.2
Full code
VTE prophylaxis Lovenox
Anticipated Discharge: Today
Subjective/Interval History
-
Date of Service: February 03, 2024
Objective Data
-
Labs:
Laboratory Results
02/03/24
06:59
Sodium 136
Potassium 4.2
Chloride 103
Carbon Dioxide 25
BUN 31 H
Creatinine 0.9
Glucose 115 H
Calcium 9.2
Vital Signs:
Vital Signs
Temp Pulse Resp BP Pulse Ox
98.9 F 92 20 136/88 92
02/03/24 15:52 02/03/24 15:52 02/03/24 15:52 02/03/24 15:52 02/03/24 15:52
I&O
02/02/24 02/03/24 02/04/24
06:59 06:59 06:59
Intake Total 800 / 800 900 / 900 480 / 480
Balance 800 / 800 900 / 900 480 / 480
Review of Systems
-
Constitutional: Denies Fever or Chills
EENT: Denies Sore Throat
Respiratory: Reports Cough and Trouble Breathing
Cardiac: Denies Chest Pain
Abdomen/GI: Denies Abdominal Pain, Nausea or Vomiting
Genitourinary: Reports Frequency and Incontinence; Denies Dysuria
Neuro: Denies Dizzy or Headache
Physical Exam
-
General: No Apparent Distress
HEENT: Moist Mucous Membranes
Respiratory: Wheezes (Wheezing decreased compared to yesterday)
Cardiac: Regular Rhythm and S1/S2
GI: Soft and Nontender
Neuro: AO x 3; Negative Tremors
Psych: Calm; Negative Confused
== END 2024-02-03 18:16 | DRG 871 ==
LOC: 4 EAST ACU 14:21
PROVIDERS: ADMITTING PHYSICIAN Internal Medicine; CONSULT PHYSICIAN Internal Medicine Critical Care Medicine; EMERGENCY PHYSICIAN Emergency Medicine; FAMILY PHYSICIAN Student in an Organized Health Care Education/Training Program
DX: A41.9 Sepsis, unspecified organism (principal); J69.0 Pneumonitis due to inhalation of food and vomit; J96.01 Acute respiratory failure with hypoxia; J44.1 Chronic obstructive pulmonary disease with (acute) exacerbation; F03.94 Unspecified dementia, unspecified severity, with anxiety; J96.11 Chronic respiratory failure with hypoxia; F03.93 Unspecified dementia, unspecified severity, with mood disturbance; J44.0 Chronic obstructive pulmonary disease with (acute) lower respiratory infection; E03.9 Hypothyroidism, unspecified; G89.29 Other chronic pain; K59.00 Constipation, unspecified; M19.90 Unspecified osteoarthritis, unspecified site; F17.210 Nicotine dependence, cigarettes, uncomplicated; G62.9 Polyneuropathy, unspecified; I10 Essential (primary) hypertension; M54.9 Dorsalgia, unspecified; J20.9 Acute bronchitis, unspecified; F32.A Depression, unspecified; I71.9 Aortic aneurysm of unspecified site, without rupture; M41.9 Scoliosis, unspecified; E78.00 Pure hypercholesterolemia, unspecified; I25.10 Atherosclerotic heart disease of native coronary artery without angina pectoris; Z79.890 Hormone replacement therapy; Z79.02 Long term (current) use of antithrombotics/antiplatelets; Z79.82 Long term (current) use of aspirin; Z79.51 Long term (current) use of inhaled steroids; Z95.5 Presence of coronary angioplasty implant and graft; Z11.52 Encounter for screening for COVID-19; Z88.1 Allergy status to other antibiotic agents; Z88.5 Allergy status to narcotic agent; Z88.0 Allergy status to penicillin; Z79.891 Long term (current) use of opiate analgesic
CPT/HCPCS: 71045; 71046; 74230; 80048; 80053; 81003; 81015; 82533; 82607; 83605; 83735; 83880; 84145; 84439; 84443; 84484; 85025; 87040; 87070; 87205; 87502; 87811; 92526; 92610; 92611; 93005; 94640; 96365; 96375; 97162; 97166; 97530; 97535; 99285; 99406